=== PATIENT | female | born 1960 | race Caucasian/White ===

== ENCOUNTER 2020-06-26 19:04 | Emergency (ER) | payer OTHER ==
[2020-06-26] MEDS ORDERED: KETOROLAC TROMETHAMINE 30 MG/1 ML VIAL IM ONE (19:21)
[2020-06-26 19:27] VITALS: BMI 35.6
[2020-06-26] MEDS ORDERED: KETOROLAC TROMETHAMINE 30 MG/1 ML VIAL ONE (19:28)
--- NOTE | 2020-06-26 20:06 | PDOC ---
Documentation entered by Prema Michelle SCRIBE, acting as scribe for Socorro Craig MD. Socorro Craig MD: This documentation has been prepared by the billyibeMiguel Angel Lincy, SCRIBE, under my direction and personally reviewed by me in its entirety. I confirm that the documentation accurately reflects all work, treatment, procedures, and medical decision making performed by me. History of Present Illness - General Chief Complaint: Respiratory Stated Complaint: R/O COVID FEVER COUGH VOMITING CHILLS Time Seen by Provider: 06/26/20 19:10 History Source: Patient Exam Limitations: No Limitations - History of Present Illness Initial Comments: 06/26/20 19:28 The patient is a 59-year-old female with a past medical history significant for obesity who presents to the emergency department cough, shortness of breath, and fever. The patient presents with 2 days of mild cough, mild shortness of breath with intermittent episodes of fever, and an episode of nonbloody, nonbilious vomiting this morning. The patient reports taking Tylenol prior to ED arrival. The patient reports an acute exacerbation of chronic right-sided lower back pain, which promoted the ED visit. The patient states she was recently diagnosed with UTI 5 days ago and was started on Cephalexin, denies dysuria. Allergies: NKA Social history: Former smoker. No reported alcohol or recreational drug use. Surgical history: Right and left-hand orthopedic surgery. PCP: Dr. Edwardo Romano. Past History - Medical History Allergies/Adverse Reactions: Allergies Allergy/AdvReac Type Severity Reaction Status Date / Time No Known Allergies Allergy Verified 06/26/20 19:17 Home Medications: Ambulatory Orders Cephalexin [Keflex] 500 mg PO TID 06/26/20 Lidocaine 5% Patch [Lidoderm -] 1 patch TP DAILY #7 patch 06/26/20 Anemia: No Asthma: No Cancer: No Cardiac Disorders: No CVA: No COPD: No CHF: No Dementia: No Diabetes: No GI Disorders: No Disorders: No HTN: No Hypercholesterolemia: No Liver Disease: No Seizures: No Thyroid Disease: No - Surgical History Abdominal Surgery: No Appendectomy: No Cardiac Surgery: No Cholecystectomy: No Lung Surgery: No Orthopedic Surgery: Yes (RIGHT AND LEFT HAND) - Psycho-Social/Smoking History Smoking History: Former smoker Have you smoked in the past 12 months: No If you are a former smoker, when did you quit?: 1991 Review of Systems - Review of Systems Able to Perform ROS?: Yes Comments:: 06/26/20 19:28 GEN: +intermittent fever. No chills, night sweats, generalized weakness, malaise, or unintentional weight change HEENT: no ear pain, congestion, sore throat, vision change, or eye pain CV: no chest pain, palpitations, lightheadedness, syncope, or edema RESP: +mild cough. +mild shortness of breath. No wheezing. GI: +1 episode of nonbloody, nonbilious emesis this morning. no abdominal pain, nausea, diarrhea, constipation, or white/black/bloody stool : no dysuria, hematuria, frequency, incontinence, retention, or discharge MSK: +exacerbation of chronic right sided lower back pain. No other muscle weakness or pain, no joint swelling or pain NEURO: no headache, seizure, vertigo, imbalance, numbness, tingling, focal weakness, or difficulty walking/talking PSYCH: no insomnia, behavior change, SI, HI, or substance use SKIN: no pruritus, excessive dryness, jaundice, rash, cuts, or unexplained bruises ROS otherwise negative except as noted in HPI *Physical Exam - Physical Exam 06/26/20 19:27 GENERAL: +very pleasant. nontoxic-appearing, A/Ox4, no distress, answers questions appropriately. +obese HEENT: PERRLA, EOMI, moist mucous membranes NECK/BACK: no midline ttp, no spinal stepoff or deformity, no hematoma, full ROM, neck supple CARDIOVASCULAR: regular rate/rhythm, no MGR, strong peripheral pulses, capillary refill <2 seconds, extremities wwp, no edema LUNGS/RESPIRATORY: no respiratory distress, CTAB GI/ABDOMEN: symmetric [id number], normoactive BS, soft, no ttp, no midline pulsatile masses : no CVA tenderness MSK/EXTREMITIES: no muscle atrophy, no acute deformity SKIN: warm and dry, no pallor, no jaundice, no rash, no pathologic-appearing bruising, no skin breakdown, no cuts, no lesions NEUROLOGICAL: GCS 15, CN II-XII grossly intact, 5/5 strength proximally and distally, no facial droop. Medical Decision Making - Medical Decision Making 59YOF p/w cough, mild SOB, URI sxs, on Keflex for recently diagnosed UTI, who p/w exacerbation of her chronic low back pain. Initial Vital Signs Temp Pulse Resp BP Pulse Ox 98.4 F 94 H 20 141/102 H 96 06/26/20 19:07 06/26/20 19:07 06/26/20 19:07 06/26/20 19:07 06/26/20 19:07 No new red flag symptoms. The back pain is not midline. The patient is not at extremes of age, has no h/o aortic aneurysm or dissection, no known h/o osteoporosis or prolonged glucocorticoid or anticoagulant use, no h/o IVDU or immune compromise. She is already being treated for a UTI with abx. No h/o cancer and no significant risk factors for cancer. The patient reports no recent trauma, weight loss, night sweats, swollen lymph nodes, pain worsening with rest or at night, neuro focal deficit (no numbness/tingling/weakness focally), bowel or bladder dysfunction, or associated syncope, nausea, or diaphoresis. The pain is not severe or progressive, has been present for <6 weeks, and is not associated with thoracic or abdominal pain. Most likely muscle sprain/strain/spasm as patient herself notes she has been laying in bed all day for the past couple of days, feeling a bit ill with the URI symptoms and the UTI. There may be some underlying DDD/DJD precipitating the symptoms but less likely given that it is paraspinous. The pain is not overlying the CVA and the patient is very well appearing with VSS and thus unlikely pyelonephritis. Provider Orders Category Date Time Status Isolation Precautions As directed Care 06/26/20 19:11 Active COVID-19 Stat Lab 06/26/20 20:00 Received Ketorolac Injection [Toradol Injection -] Medication 06/26/20 19:28 Discontinued 30 mg .ROUTE .STK-MED ONE Ketorolac Injection [Toradol Injection -] Medication 06/26/20 19:21 Discontinued 30 mg IM ONCE ONE CHEST X-RAY PORTABLE* [RAD] Stat Radiology 06/26/20 19:11 Taken Medications Discontinued Medications Generic Name Dose Route Start Last Admin Trade Name Freq PRN Reason Stop Dose Admin Ketorolac Tromethamine 30 mg 06/26/20 19:21 06/26/20 19:33 Toradol Injection - IM 06/26/20 19:22 30 mg ONCE ONE Administration Ketorolac Tromethamine Confirm 06/26/20 19:28 Toradol Injection - Administered 06/26/20 19:29 Dose 30 mg .ROUTE .STK-MED ONE CXR shows no focal consolidation, no change from prior CXR except possible cardiomegaly but this is a PA study. Patient feels significantly better after Toradol, wants to go home. Repeat abdominal and lung exam benign, repeat neuro exam benign. They are appropriate for discharge with close outpatient follow up. The Pt is comfortable with this plan and will follow up with PCP in 1-3 days. Specific return precautions are discussed and they will come back to the ER if necessary. The patient walks out of the department unassisted without issue. Discharge - Discharge Information Problems reviewed: Yes Clinical Impression/Diagnosis: Cough, Hx of fever Low back pain Qualifiers: Chronicity: unspecified Back pain laterality: right Sciatica presence: unspecified whether sciatica present Qualified Code(s): M54.5 - Low back pain Condition: Stable Disposition: HOME - Admission No - Additional Discharge Information Prescriptions: Lidocaine 5% Patch [Lidoderm -] 1 patch TP DAILY #7 patch - Follow up/Referral Referrals: Zahraa Romano MD [Primary Care Provider] - - Patient Discharge Instructions Patient Printed Discharge Instructions: DI for Low Back Pain, [facility]-Coronavirus Instructions Additional Instructions: You were seen in the ER for back pain, cough, and fever. We did a chest x-ray and did not see any concerning abnormalities. We took a COVID-19 swab and the results should be back in about 36 hours. Your symptoms improved with the medications we gave you in the ER. After our assessment, we do not believe you are having a medical emergency at this time, and we believe you are safe to go home. Use the lidocaine patch on the painful area of your low back as needed. Try not to stay in bed all day - instead, stay relatively active and do some light stretching exercises regularly, but do not overdo it. For the cough, you can try [id number] medication like Robitussin. Please follow up with your primary care provider in 1-3 days. Call their clinic as soon as possible, tell them you were seen in the ER, and tell them you need an appointment. If you have any new or worsening symptoms please come back to the ER at any time (24 hours a day), especially for fever, new numbness new tingling, new weakness, new urinary or bowel incontinence or retention, worsening difficulty breathing, chest pain, or other new symptoms. If you are having severe or life threatening symptoms, or symptoms that make it unsafe to drive or have someone drive you, please call 911. - Post Discharge Activity
[2020-06-26 20:09] VITALS: PULSE 86; TEMP 99.8
[2020-06-26 20:13] VITALS: BP 120/78
== END 2020-06-26 20:30 | disposition home or self-care (01) ==
LOC: FER 19:04
PROC: 3E0233Z Introduction of Anti-inflammatory into Muscle, Percutaneous Approach (ICD-10-PCS; principal; 2020-06-26)
DX: M54.5 Low back pain (principal); R05 Cough
CPT/HCPCS: 71045-TC-FY; 99284-25; U0003

== ENCOUNTER 2022-08-06 14:54 | Emergency (ER) | payer BC, OTHER ==
[2022-08-06] MEDS ORDERED: ACETAMINOPHEN INJECTION 100 ML IVPB ONE (15:39)
[2022-08-06 15:42] VITALS: RESP 20; TEMP 99.2; BMI 37.1
[2022-08-06 15:57] LABS: INR 1.26 (0.83-1.09); PROTHROMBIN TIME (PATIENT) 14.5 SEC (9.7-13.0)
[2022-08-06 16:00] LABS: ACTIVATED PTT 28.1 SECONDS (25.2-36.5)
[2022-08-06 16:16] LABS: ALBUMIN 3.4 g/dl (3.4-5.0); BILIRUBIN,TOTAL 1.4 mg/dl (0.2-1); CALCIUM 9.6 mg/dl (8.5-10); CREATININE 1.3 mg/dl (0.55-1.3); TOT PROT 5.9 g/dl (6.4-8.2)
[2022-08-06 16:21] LABS: HEMATOCRIT 37.5 % (32.4-45.2); HEMOGLOBIN 11.8 G/dL (10.7-15.3); MCH 28.8 pg (25.7-33.7); MCHC 31.6 g/dl (32.0-36.0); MEAN CELL VOLUME 91.3 fl (80-96); MEAN PLT VOLUME 9.7 fl (7.5-11.1); RBC 4.11 10^6/uL (3.60-5.2); RDW 16.5 % (11.6-15.6)
[2022-08-06 16:25] LABS: PLATELET COUNT 85.1 10^3/uL (134-434); WHITE BLOOD COUNT 84.3 10^3/uL (4.0-10.8)
[2022-08-06] MEDS ORDERED: SODIUM CHLORIDE 0.9% 1000 ML INFUS.BAG IV ONE ×2 (16:28)
[2022-08-06 16:31] LABS: ANISOCYTOSIS FEW; PLATELET ESTIMATE SLT DECREASE; SMUDGE CELLS FEW
[2022-08-06] MEDS ORDERED: PIPERACILLIN/TAZOB 4.5 GM 4.5 GM in DEXTROSE 5%-WATER 100 ML IVPB ONE (16:58)
[2022-08-06] MEDS ORDERED: morphine SULFATE 4 MG/ML VIAL IVPUSH ONE (17:00)
[2022-08-06] MEDS ORDERED: morphine SULFATE 4 MG/ML VIAL ONE (17:01)
[2022-08-06] MEDS ORDERED: PIPERACILLIN/TAZOBACTAM 4.5 GM VIAL IVPB ONE (17:34)
[2022-08-06 17:45] LABS: URIC ACID 7.8 mg/dL (2.6-7.2)
[2022-08-06] MEDS ORDERED: HYDROmorphone HCL CARPU-JECT 1 MG/1 ML DISP.SYRIN IVPUSH ONE ×2 (18:20→18:56)
[2022-08-06] MEDS ORDERED: HYDROmorphone HCL/PF 1 MG/ML VIAL ONE ×2 (18:21→18:46)
[2022-08-06 18:42] VITALS: BP 116/84; PULSE 84
== END 2022-08-06 19:02 | disposition short-term general hospital (02) ==
LOC: FER 14:54
PROC: 3E03329 Introduction of Other Anti-infective into Peripheral Vein, Percutaneous Approach (ICD-10-PCS; principal; 2022-08-06)
PROC: 3E033NZ Introduction of Analgesics, Hypnotics, Sedatives into Peripheral Vein, Percutaneous Approach (ICD-10-PCS; 2022-08-06)
PROC: 3E033GC Introduction of Other Therapeutic Substance into Peripheral Vein, Percutaneous Approach (ICD-10-PCS; 2022-08-06)
PROC: 3E033GC Introduction of Other Therapeutic Substance into Peripheral Vein, Percutaneous Approach (ICD-10-PCS; 2022-08-06)
DX: D72.820 Lymphocytosis (symptomatic) (principal); R10.11 Right upper quadrant pain
CPT/HCPCS: 36415; 71045-TC-FY; 74177-TC; 76705-TC; 80053; 83605; 83615; 83690; 84484; 84550; 85025; 85610; 85730; 86850; 86900; 86901; 87040; 87076; 87186; 93005; 99285-25; C9803-CS; Q9967; U0003; U0005